=== PATIENT | male | born 1965 | race African-American/Black ===

== ENCOUNTER 2018-09-06 17:32 | Inpatient (IN) | payer OTHER ==
[2018-09-07 00:01] VITALS: BMI 22.9
--- NOTE | 2018-09-07 01:32 | HP ---
COWS - Scale Resting Pulse: 0= [place] 80 or Below Sweatin=Flushed/Facial Moisture Restless Observation: 0= Sits Still Pupil Size: 0= Normal to Room Light Bone or Joint Aches: 2= Severe Diffuse Aches Runny Nose/ Eye Tearin= Runny Nose/Eyes GI Upset > 30mins: 1= Stomach Cramp Tremor Observation: 4= Gross Tremor/Twitching Yawning Observation: 1= 1-2x During Session Anxiety or Irritability: 4=Extreme Anxiety Goose Flesh Skin: 0=Smooth Skin COWS Score: 16 CIWA Score - Admission Criteria OASAS Guidelines: Admission for Medically Managed Detox: Requires at least one of the followin. CIWA greater than 12 2. Seizures within the past 24 hours 3. Delirium tremens within the past 24 hours 4. Hallucinations within the past 24 hours 5. Acute intervention needed for co occurring medical disorder 6. Acute intervention needed for co occurring psychiatric disorder 7. Severe withdrawal that cannot be handled at a lower level of care (continued vomiting, continued diarrhea, abnormal vital signs) requiring intravenous medication and/or fluids 8. Admission ROS [facility] Chief Complaint: Heroin withdrawal symptoms Allergies/Adverse Reactions: Allergies Allergy/AdvReac Type Severity Reaction Status Date / Time Penicillins Allergy Verified 09/06/18 23:52 History of Present Illness: 52 years old male with a long history of heroin dependence is seeking admission to detox. Patient has been in previous detox and reports 15 months of sobriety. He has history of AIDS, Hep C, BPH, Seizures, asthma, COPD, positive PPD, depression and anxiety. He denies suicide attempt and suicidal ideation at this time Exam Limitations: No Limitations - Ebola screening Have you traveled outside of the country in the last 21 days: No (N) Have you had contact with anyone from an Ebola affected area: No Do you have a fever: No - Review of Systems Constitutional: Chills, Malaise, Night Sweats, Changes in sleep EENT: reports: Nose Congestion Respiratory: reports: No Symptoms reported Cardiac: reports: No Symptoms Reported GI: reports: Nausea, Poor Appetite, Poor Fluid Intake, Abdominal cramping : reports: No Symptoms Reported Musculoskeletal: reports: Back Pain Integumentary: reports: Dryness, Flushing Neuro: reports: Tremors Endocrine: reports: No Symptoms Reported Hematology: reports: No Symptoms Reported Psychiatric: reports: Orientated x3, Anxious Patient History - Patient Medical History Hx Anemia: No Hx Asthma: Yes ( A CHILD) Hx Chronic Obstructive Pulmonary Disease (COPD): Yes (noted on CXR 12/11/14) Hx Cancer: No Hx Cardiac Disorders: No Hx Congestive Heart Failure: No Hx Hypertension: No Hx Hypercholesterolemia: No Hx Pacemaker: No HX Cerebrovascular Accident: No Hx Seizures: Yes (SUBSTANCE ABUSE RELATED) Hx Dementia: No Hx Diabetes: No Hx Gastrointestinal Disorders: No Hx Liver Disease: No Hx Genitourinary Disorders: Yes (KIDNEY STONES) Hx Sexually Transmitted Disorders: No Hx Renal Disease (ESRD): No Hx Thyroid Disease: No Hx Human Immunodeficiency Virus (HIV): Yes Hx Hepatitis C: Yes (Not on medication) Hx Depression: Yes (Not on medication) - Patient Surgical History Past Surgical History: Yes Hx Neurologic Surgery: No Hx Cataract Extraction: No Hx Cardiac Surgery: No Hx Lung Surgery: No Hx Breast Surgery: No Hx Breast Biopsy: No Hx Abdominal Surgery: No Hx Appendectomy: No Hx Cholecystectomy: No Hx Genitourinary Surgery: Yes (KIDNEY STONES) Hx Section: No Hx Orthopedic Surgery: No Hx Hysterectomy: No Anesthesia Reaction: No - PPD History Previous Implant?: Yes (PPD POSITIVE ) PPD to be Administered?: No - Reproductive History Patient is a Female of Child Bearing Age (11 -55 yrs old): No (male) - Smoking Cessation Smoking history: Current every day smoker Have you smoked in the past 12 months: Yes Aproximately how many cigarettes per day: 6 Cigars Per Day: 0 Hx Chewing Tobacco Use: No Initiated information on smoking cessation: Yes 'Breaking Loose' booklet given: 09/07/18 - Substance & Tx. History Hx Alcohol Use: No Hx Substance Use: Yes Substance Use Type: Cocaine, Opiates Hx Substance Use Treatment: Yes - Substances abused Heroin Substance route: Inhalation Frequency: 3-6 times per week Amount used: 4 bundle Age of first use: 17 Date of last use: 09/06/18 Family Disease History - Family Disease History Family Disease History: Diabetes: Mother, Heart Disease: Grandparent (mat gm - htn) Admission Physical Exam BHS - Vital Signs Vital Signs: Vital Signs - 24 hr 09/06/18 09/07/18 23:49 00:43 Temperature 98.6 F 98.6 F Pulse Rate 78 78 Respiratory 16 16 Rate Blood Pressure 116/76 116/76 - Physical General Appearance: Yes: Moderate Distress, Tremorous, Irritable, Sweating, Anxious HEENTM: Yes: EOMI, Normal Voice, FAWN Respiratory: Yes: Lungs Clear, Normal Breath Sounds, No Respiratory Distress Neck: Yes: Supple Breast: Yes: Breast Exam Deferred Cardiology: Yes: Regular Rhythm, Regular Rate Abdominal: Yes: Normal Bowel Sounds, Soft Genitourinary: Yes: Within Normal Limits Back: Yes: Normal Inspection Musculoskeletal: Yes: Within Normal Limits Extremities: Yes: Normal Inspection Neurological: Yes: Within Normal Limits, Fully Oriented, Alert Integumentary: Yes: Warm Lymphatic: Yes: Within Normal Limits - Diagnostic (1) Asthma Current Visit: Yes Status: Chronic Qualifiers: Asthma severity: mild Asthma persistence: intermittent (2) Seizures Current Visit: Yes Status: Chronic (3) Hep C w/ coma, chronic Current Visit: Yes Status: Chronic (4) History of positive PPD Current Visit: Yes Status: Chronic Comment: h/o positive ppd, treated refer for cxr pa/lat f/u next visit (5) Acquired immune deficiency syndrome (AIDS) Current Visit: Yes Status: Chronic Comment: CD4 169, VL < 40 not detected influenza vaccine 11/27/17 -medication regimen started 11/29/2014: Truvada 1 tab po daily; Dolutegravir 50mg 1 tab po bid; Fuzeon inject 90 mg subQ bid; Study Drug (BMS Attachment Inhibitor) 1 tab po bid (provided by study at [facility], coordinator is Shannan Pena, ); pt to continue f/u [facility] -- next appt 08/05/18 (6) COPD (chronic obstructive pulmonary disease) Current Visit: Yes Status: Chronic Comment: cxr - no acute disease smoking cessation advised pt declines referral for pulmonology, PFTs, or chest ct (7) Cocaine dependence Current Visit: Yes Status: Chronic Qualifiers: Substance use status: uncomplicated Qualified Code(s): F14.20 - Cocaine dependence, uncomplicated (8) BPH (benign prostatic hyperplasia) Current Visit: Yes Status: Acute (9) Opioid dependence with withdrawal Current Visit: Yes Status: Acute (10) Nicotine dependence Current Visit: Yes Status: Chronic Qualifiers: Nicotine product type: cigarettes Substance use status: uncomplicated Qualified Code(s): F17.210 - Nicotine dependence, cigarettes, uncomplicated Cleared for Admission S - Detox or Rehab [facility] Level of Care: Medically Managed Detox Regimen/Protocol: Methadone Claeared for Rehab Admission: No Breathalyzer - Breathalyzer Breathalyzer: 0 Urine Drug Screen - Test Device Lot number: [id number] Expiration date: 06/20/20 - Control Is test valid?: Yes - Results Drug screen NEGATIVE: No Urine drug screen results: LIBERTY-Cocaine, MOP-Opiates Inpatient Rehab Admission - Rehab Decision to Admit Inpatient rehab admission?: No
[2018-09-07] MEDS ORDERED: IBUPROFEN 400 MG TABLET (FP) PO PRN (01:53)
[2018-09-07] MEDS ORDERED: METHADONE HCL 10 MG TABLET (FOR DETOX USE ONLY) PO ONE (01:53)
[2018-09-07] MEDS ORDERED: MAG HYDROX/AL HYDROX/SIMETH 30 ML UNIT-DOSE CUP PO PRN (01:53)
[2018-09-07] MEDS ORDERED: P-EPHED 60MG/TRIPROLIDI 2.5MG TABLET PO PRN (01:53)
[2018-09-07] MEDS ORDERED: guaiFENesin 200 MG/10 ML 10 ML UNIT-DOSE CUPS PO PRN (01:53)
[2018-09-07] MEDS ORDERED: NICOTINE POLACRILEX 2 MG GUM BUC PRN (01:53)
[2018-09-07] MEDS ORDERED: ACETAMINOPHEN 325 MG TABLET (FP) PO PRN (01:53)
[2018-09-07] MEDS ORDERED: MAGNESIUM CITRATE 300 ML BOTTLE PO PRN (01:53)
[2018-09-07] MEDS ORDERED: cloNIDine HCL 0.1 MG TABLET PO PRN (01:53)
[2018-09-07] MEDS ORDERED: MENTHOL/PHENOL 1 EACH UD MM PRN (01:53)
[2018-09-07] MEDS ORDERED: MAGNESIUM HYDROX 2400MG/30ML ORAL SUSPENSION 30 ML CUP PO PRN (01:53)
[2018-09-07] MEDS ORDERED: LOPERAMIDE HCL 2 MG CAPSULE PO PRN (01:53)
[2018-09-07] MEDS ORDERED: ALBUTEROL SO4 8 GM HFA INHALER IH PRN (01:54)
--- NOTE | 2018-09-07 08:52 | PN ---
BHS COWS - Scale Resting Pulse: 0= [place] 80 or Below Sweatin= Chills/Flushing Restless Observation: 1= Difficult to Sit Still Pupil Size: 1= Pupils >than Normal Bone or Joint Aches: 2= Severe Diffuse Aches Runny Nose/ Eye Tearin= Nasal Congestion GI Upset > 30mins: 2= Nausea/Diarrhea Tremor Observation of Outstretched Hands: 2= Slight Tremor Visible Yawning Observation: 1= 1-2x During Session Anxiety or Irritability: 2=Irritable/Anxious Goose Flesh Skin: 0=Smooth Skin COWS Score: 13 BHS Progress Note (SOAP) Subjective: alert,irritable,anxious,interrupted sleep,pain in the body and back Objective: 09/07/18 08:51 Vital Signs Temperature 98.6 F 09/07/18 07:11 Pulse Rate 80 09/07/18 07:11 Respiratory Rate 18 09/07/18 07:11 Blood Pressure 128/72 09/07/18 07:11 O2 Sat by Pulse Oximetry (%) 09/07/18 08:52 labs pending Assessment: 09/07/18 08:51 withdrawal symptom Plan: continue detox
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
[2018-09-07] MEDS: NICOTINE 14 MG/24 HOURS TOPICAL PATCH TD SCH (10:59)
[2018-09-07] MEDS: PRENATAL VITAMINS W/ FOLIC ACID TABLET (FP) PO SCH (10:59)
[2018-09-07] MEDS: SULFAMETHOXAZOLE/TRIMETHOPRIM 800MG/160MG D.S. TABLET PO SCH (10:59)
[2018-09-07] MEDS: CITALOPRAM HYDROBROMIDE 20 MG TABLET (FP) PO SCH (11:00)
[2018-09-07] MEDS: BENZTROPINE MESYLATE 1 MG TABLET (FP) PO SCH ×2 (11:00→23:03)
[2018-09-07] MEDS: ARIPiprazole 2 MG TABLET PO SCH (12:12)
[2018-09-07 12:15] LABS: HEMATOCRIT 37.9 % (35.4-49); HEMOGLOBIN 13.1 GM/dL (11.7-16.9); MCH 28.2 pg (25.7-33.7); MCHC 34.5 g/dl (32.0-35.9); MEAN CELL VOLUME 81.9 fl (80-96); MEAN PLT VOLUME 8.2 fl (7.5-11.1); RBC 4.63 M/mm3 (4.00-5.60); RDW 16.4 % (11.9-15.9); WHITE BLOOD COUNT 6.2 K/mm3 (4.0-10.0)
[2018-09-07 12:28] LABS: EPI CELLS 6.9 /HPF (0-5/HPF); HYALINE CASTS 19 /lpf (0-8); PH,URINE 6.5 (5.0-8.0); URINE APPEARANCE CLEAR; URINE BACTERIA 2.9 /hpf (NEGATIVE); URINE BILIRUBIN 1+ (NEGATIVE); URINE COLOR DK YELLOW; URINE GLUCOSE (UA) NEGATIVE (NEGATIVE); URINE KETONE NEGATIVE (NEGATIVE); URINE LEUK ESTERASE 3+ (NEGATIVE); URINE NITRITE NEGATIVE (NEGATIVE); URINE PROTEIN NEGATIVE (NEGATIVE); URINE RBC 9 /hpf (0-4); URINE WBC 71 /hpf (0-5)
[2018-09-07 12:34] LABS: ALBUMIN 3.3 g/dl (3.4-5.0); BILIRUBIN,TOTAL 0.3 mg/dL (0.2-1); BLOOD UREA NITROGEN 10.3 mg/dL (7-18); CALCIUM 8.2 mg/dL (8.5-10.1); CREATININE 0.9 mg/dL (0.55-1.3); POTASSIUM 4.4 mmol/L (3.5-5.1); TOT PROT 6.6 g/dl (6.4-8.2)
[2018-09-07 13:18] LABS: PLATELET COUNT 317 K/MM3 (134-434)
[2018-09-07] MEDS ORDERED: MELATONIN 5 MG TABLETS PO PRN (22:00)
[2018-09-07] MEDS: THIAMINE HCL 100 MG TABLET (FP) PO SCH (23:03)
[2018-09-07] MEDS: OLANZapine 10 MG TABLET PO SCH (23:03)
--- NOTE | 2018-09-08 09:53 | PN ---
BHS COWS - Scale Resting Pulse: 0= [place] 80 or Below Sweatin= Chills/Flushing Restless Observation: 1= Difficult to Sit Still Pupil Size: 0= Normal to Room Light Bone or Joint Aches: 1= Mild Discomfort Runny Nose/ Eye Tearin= Runny Nose/Eyes GI Upset > 30mins: 0= None Tremor Observation of Outstretched Hands: 1= Tremor [place], Not Seen Yawning Observation: 0= None Anxiety or Irritability: 2=Irritable/Anxious Goose Flesh Skin: 0=Smooth Skin COWS Score: 8 BHS Progress Note (SOAP) Subjective: Patient on opioid detox c/o of interrupted sleep, body aches and anxious. MAT options discussed,patietn reports hx OTP, plans to return to out patient day program at [facility] upon completing detox Objective: 09/08/18 09:48 Vital Signs Temperature 96.6 F L 09/08/18 07:13 Pulse Rate 63 09/08/18 07:13 Respiratory Rate 18 09/08/18 07:13 Blood Pressure 112/58 L 09/08/18 07:13 O2 Sat by Pulse Oximetry (%) Laboratory Last Values WBC 6.2 K/mm3 (4.0-10.0) 09/07/18 07:00 RBC 4.63 M/mm3 (4.00-5.60) 09/07/18 07:00 Hgb 13.1 GM/dL (11.7-16.9) 09/07/18 07:00 Hct 37.9 % (35.4-49) 09/07/18 07:00 MCV 81.9 fl (80-96) 09/07/18 07:00 MCH 28.2 pg (25.7-33.7) 09/07/18 07:00 MCHC 34.5 g/dl (32.0-35.9) 09/07/18 07:00 RDW 16.4 % (11.9-15.9) H 09/07/18 07:00 Plt Count 317 K/MM3 (134-434) 09/07/18 07:00 MPV 8.2 fl (7.5-11.1) 09/07/18 07:00 Sodium 138 mmol/L (136-145) 09/07/18 07:00 Potassium 4.4 mmol/L (3.5-5.1) 09/07/18 07:00 Chloride 107 mmol/L (98-107) 09/07/18 07:00 Carbon Dioxide 29 mmol/L (21-32) 09/07/18 07:00 Anion Gap 3 MMOL/L (8-16) L 09/07/18 07:00 BUN 10.3 mg/dL (7-18) 09/07/18 07:00 Creatinine 0.9 mg/dL (0.55-1.3) 09/07/18 07:00 Est GFR (CKD-EPI)AfAm 112.62 09/07/18 07:00 Est GFR (CKD-EPI)NonAf 97.17 09/07/18 07:00 Random Glucose 80 mg/dL (74-106) 09/07/18 07:00 Calcium 8.2 mg/dL (8.5-10.1) L 09/07/18 07:00 Total Bilirubin 0.3 mg/dL (0.2-1) 09/07/18 07:00 AST 32 U/L (15-37) 09/07/18 07:00 ALT 31 U/L (13-61) 09/07/18 07:00 Alkaline Phosphatase 103 U/L (45-117) 09/07/18 07:00 Total Protein 6.6 g/dl (6.4-8.2) 09/07/18 07:00 Albumin 3.3 g/dl (3.4-5.0) L 09/07/18 07:00 Urine Color Dk yellow 09/07/18 09:45 Urine Appearance Clear 09/07/18 09:45 Urine pH 6.5 (5.0-8.0) 09/07/18 09:45 Ur Specific [place] 1.020 (1.010-1.035) 09/07/18 09:45 Urine Protein Negative (NEGATIVE) 09/07/18 09:45 Urine Glucose (UA) Negative (NEGATIVE) 09/07/18 09:45 Urine Ketones Negative (NEGATIVE) 09/07/18 09:45 Urine Blood Negative (NEGATIVE) 09/07/18 09:45 Urine Nitrite Negative (NEGATIVE) 09/07/18 09:45 Urine Bilirubin 1+ (NEGATIVE) H 09/07/18 09:45 Urine Urobilinogen 1.0 mg/dL (0.2-1.0) 09/07/18 09:45 Ur Leukocyte Esterase 3+ (NEGATIVE) H 09/07/18 09:45 Urine WBC (Auto) 71 /hpf (0-5) 09/07/18 09:45 Urine RBC (Auto) 9 /hpf (0-4) 09/07/18 09:45 Urine Casts (Auto) 19 /lpf (0-8) 09/07/18 09:45 U Epithel Cells (Auto) 6.9 /HPF (0-5/HPF) 09/07/18 09:45 U Sm Round Cell (Auto) None seen 09/07/18 09:45 Urine Bacteria (Auto) 2.9 /hpf (NEGATIVE) 09/07/18 09:45 RPR Titer Nonreactive (NONREACTIVE) 09/07/18 07:00 labs reviewed, repeat u/a Assessment: 09/08/18 09:53 patient Aox3, mild anxious no acute distress + cheilitis full ROM ambulating in the unit Plan: Increase PO fluids repeat u/a continue detox continue to monitor
[2018-09-08] MEDS ORDERED: METHADONE HCL 5 MG TABLET (FOR DETOX USE ONLY) PO ONE (10:00)
[2018-09-08] MEDS: BENZTROPINE MESYLATE 1 MG TABLET (FP) PO SCH ×2 (10:06→22:10)
[2018-09-08] MEDS: PRENATAL VITAMINS W/ FOLIC ACID TABLET (FP) PO SCH (10:06)
[2018-09-08] MEDS: TAMSULOSIN HCL 0.4 MG CAP PO SCH (10:07)
[2018-09-08] MEDS: CITALOPRAM HYDROBROMIDE 20 MG TABLET (FP) PO SCH (10:07)
[2018-09-08] MEDS: SULFAMETHOXAZOLE/TRIMETHOPRIM 800MG/160MG D.S. TABLET PO SCH (10:07)
[2018-09-08] MEDS: ARIPiprazole 2 MG TABLET PO SCH (10:09)
[2018-09-08] MEDS: NICOTINE 14 MG/24 HOURS TOPICAL PATCH TD SCH (10:10)
--- NOTE | 2018-09-08 10:33 | EKG ---
Test Reason : Blood Pressure : / mmHG Vent. Rate : 074 BPM Atrial Rate : 074 BPM P-R Int : 180 ms QRS Dur : 076 ms QT Int : 374 ms P-R-T Axes : 073 040 018 degrees QTc Int : 415 ms NORMAL SINUS RHYTHM NORMAL ECG NO PREVIOUS ECGS AVAILABLE Confirmed by SHELTON AGUILAR, GERMAN ([id number]) on 09/08/2018 10:33:39 AM Referred By: Brown Faria Confirmed By:GERMAN PEOPLES MD
[2018-09-08] MEDS: OLANZapine 10 MG TABLET PO SCH (22:10)
[2018-09-08] MEDS: THIAMINE HCL 100 MG TABLET (FP) PO SCH (22:10)
--- NOTE | 2018-09-09 08:43 | PN ---
BHS COWS - Scale Resting Pulse: 0= [place] 80 or Below Sweatin= Chills/Flushing Restless Observation: 0= Sits Still Pupil Size: 0= Normal to Room Light Bone or Joint Aches: 1= Mild Discomfort Runny Nose/ Eye Tearin= None GI Upset > 30mins: 0= None Tremor Observation of Outstretched Hands: 0= None Yawning Observation: 1= 1-2x During Session Anxiety or Irritability: 1=Feels Anxious/Irritable Goose Flesh Skin: 0=Smooth Skin COWS Score: 4 BHS Progress Note (SOAP) Subjective: c/o body aches, interrupted sleep, chills Objective: 09/09/18 08:41 Vital Signs Temperature 98.2 F 09/09/18 07:40 Pulse Rate 71 09/09/18 07:40 Respiratory Rate 18 09/09/18 07:40 Blood Pressure 102/63 09/09/18 07:40 O2 Sat by Pulse Oximetry (%) Laboratory Last Values WBC 6.2 K/mm3 (4.0-10.0) 09/07/18 07:00 RBC 4.63 M/mm3 (4.00-5.60) 09/07/18 07:00 Hgb 13.1 GM/dL (11.7-16.9) 09/07/18 07:00 Hct 37.9 % (35.4-49) 09/07/18 07:00 MCV 81.9 fl (80-96) 09/07/18 07:00 MCH 28.2 pg (25.7-33.7) 09/07/18 07:00 MCHC 34.5 g/dl (32.0-35.9) 09/07/18 07:00 RDW 16.4 % (11.9-15.9) H 09/07/18 07:00 Plt Count 317 K/MM3 (134-434) 09/07/18 07:00 MPV 8.2 fl (7.5-11.1) 09/07/18 07:00 Sodium 138 mmol/L (136-145) 09/07/18 07:00 Potassium 4.4 mmol/L (3.5-5.1) 09/07/18 07:00 Chloride 107 mmol/L (98-107) 09/07/18 07:00 Carbon Dioxide 29 mmol/L (21-32) 09/07/18 07:00 Anion Gap 3 MMOL/L (8-16) L 09/07/18 07:00 BUN 10.3 mg/dL (7-18) 09/07/18 07:00 Creatinine 0.9 mg/dL (0.55-1.3) 09/07/18 07:00 Est GFR (CKD-EPI)AfAm 112.62 09/07/18 07:00 Est GFR (CKD-EPI)NonAf 97.17 09/07/18 07:00 Random Glucose 80 mg/dL (74-106) 09/07/18 07:00 Calcium 8.2 mg/dL (8.5-10.1) L 09/07/18 07:00 Total Bilirubin 0.3 mg/dL (0.2-1) 09/07/18 07:00 AST 32 U/L (15-37) 09/07/18 07:00 ALT 31 U/L (13-61) 09/07/18 07:00 Alkaline Phosphatase 103 U/L (45-117) 09/07/18 07:00 Total Protein 6.6 g/dl (6.4-8.2) 09/07/18 07:00 Albumin 3.3 g/dl (3.4-5.0) L 09/07/18 07:00 Urine Color Dk yellow 09/07/18 09:45 Urine Appearance Clear 09/07/18 09:45 Urine pH 6.5 (5.0-8.0) 09/07/18 09:45 Ur Specific [place] 1.020 (1.010-1.035) 09/07/18 09:45 Urine Protein Negative (NEGATIVE) 09/07/18 09:45 Urine Glucose (UA) Negative (NEGATIVE) 09/07/18 09:45 Urine Ketones Negative (NEGATIVE) 09/07/18 09:45 Urine Blood Negative (NEGATIVE) 09/07/18 09:45 Urine Nitrite Negative (NEGATIVE) 09/07/18 09:45 Urine Bilirubin 1+ (NEGATIVE) H 09/07/18 09:45 Urine Urobilinogen 1.0 mg/dL (0.2-1.0) 09/07/18 09:45 Ur Leukocyte Esterase 3+ (NEGATIVE) H 09/07/18 09:45 Urine WBC (Auto) 71 /hpf (0-5) 09/07/18 09:45 Urine RBC (Auto) 9 /hpf (0-4) 09/07/18 09:45 Urine Casts (Auto) 19 /lpf (0-8) 09/07/18 09:45 U Epithel Cells (Auto) 6.9 /HPF (0-5/HPF) 09/07/18 09:45 U Sm Round Cell (Auto) None seen 09/07/18 09:45 Urine Bacteria (Auto) 2.9 /hpf (NEGATIVE) 09/07/18 09:45 RPR Titer Nonreactive (NONREACTIVE) 09/07/18 07:00 Assessment: 09/09/18 13:32 withdrawal sx Plan: continue detox Follow up at the [facility] as scheduled 09/30/18 D/c in AM Continue to monitor
[2018-09-09] MEDS: BENZTROPINE MESYLATE 1 MG TABLET (FP) PO SCH ×2 (09:22→22:04)
[2018-09-09] MEDS: TAMSULOSIN HCL 0.4 MG CAP PO SCH (09:22)
[2018-09-09] MEDS: CITALOPRAM HYDROBROMIDE 20 MG TABLET (FP) PO SCH (09:22)
[2018-09-09] MEDS: SULFAMETHOXAZOLE/TRIMETHOPRIM 800MG/160MG D.S. TABLET PO SCH (09:23)
[2018-09-09] MEDS: ARIPiprazole 2 MG TABLET PO SCH (09:24)
[2018-09-09] MEDS: PRENATAL VITAMINS W/ FOLIC ACID TABLET (FP) PO SCH (09:27)
[2018-09-09] MEDS: NICOTINE 14 MG/24 HOURS TOPICAL PATCH TD SCH (09:28)
[2018-09-09] MEDS ORDERED: METHADONE HCL 10 MG TABLET (FOR DETOX USE ONLY) PO ONE (10:00)
[2018-09-09] MEDS: THIAMINE HCL 100 MG TABLET (FP) PO SCH (22:04)
[2018-09-09] MEDS: OLANZapine 10 MG TABLET PO SCH (22:04)
[2018-09-10] MEDS ORDERED: METHADONE HCL 5 MG TABLET (FOR DETOX USE ONLY) PO ONE (06:00)
--- NOTE | 2018-09-10 08:31 | DS ---
[facility] Detox Discharge Summary Admission Date: 09/07/18 Discharge Date: 09/10/18 - History Present History: Cocaine Dependence, Opioid Dependence - Physical Exam Results Vital Signs: Vital Signs Temperature 96.6 F L 09/10/18 06:00 Pulse Rate 63 09/10/18 06:00 Respiratory Rate 18 09/10/18 06:00 Blood Pressure 117/54 L 09/10/18 06:00 O2 Sat by Pulse Oximetry (%) - Treatment Hospital Course: Detox Protocol Followed, Detoxed Safely, Responded well, Discharged Condition Good - Medication Discharge Medications: Ambulatory Orders Benztropine Mesylate [Cogentin -] 1 mg PO BID #0 08/25/11 Citalopram Hydrobromide [Celexa -] 40 mg PO DAILY #0 08/25/11 Fluphenazine HCl 2 tab PO BID #0 08/25/11 Olanzapine [Zyprexa] 20 mg PO HS #0 08/25/11 Hydrocortisone 1% Cream [Hytone 1% Cream -] 1 applic TP BID #1 tube 07/30/18 Albuterol Sulfate Inhaler - [Ventolin HFA Inhaler -] 2 inh PO Q6H PRN #1 inh Cetirizine HCl [Zyrtec -] 10 mg PO DAILY PRN #30 tablet 08/18/18 Dolutegravir Sodium [Tivicay] 50 mg PO BID #60 tablet 08/18/18 Emtricitabine/Tenofovir [Truvada -] 1 tab PO DAILY #30 tablet 08/18/18 Enfuvirtide [Fuzeon -] 90 mg SQ BID #60 vial 08/18/18 Fluticasone Prop 0.05% Nasal [Flonase -] 1 - 2 spray NS DAILY #1 spray.pump Multivitamins [Multivit ([facility] Formulary)] 1 tab PO DAILY #30 tab 08/18/18 Sodium Chloride [Saline Nasal [place]] 1 - 2 sprays NS PRN #1 spray 08/18/18 Sulfamethoxazole/Trimethoprim [Bactrim DS -] 1 tab PO DAILY #30 tablet 08/18/18 Tamsulosin HCl [Flomax -] 0.4 mg PO DAILY #30 cap.er.24h 08/18/18 - Diagnosis (1) Opioid dependence with withdrawal Current Visit: Yes Status: Chronic (2) Acquired immune deficiency syndrome (AIDS) Current Visit: Yes Status: Chronic (3) Asthma Current Visit: Yes Status: Chronic Qualifiers: Asthma severity: mild Asthma persistence: intermittent (4) BPH (benign prostatic hyperplasia) Current Visit: Yes Status: Chronic (5) COPD (chronic obstructive pulmonary disease) Current Visit: No Status: Chronic (6) Cocaine dependence Current Visit: Yes Status: Chronic Qualifiers: Substance use status: uncomplicated Qualified Code(s): F14.20 - Cocaine dependence, uncomplicated - AMA Did Patient Leave Against Medical Advice: No
[2018-09-10 09:07] VITALS: BP 147/70; PULSE 74; TEMP 97.2
== END 2018-09-10 09:13 | disposition home or self-care (01) | DRG 897 ==
LOC: YASAS 17:32 → Y6N 09-07 01:22
PROVIDERS: ADMIT Surgery; ATTEND Surgery
PROC: HZ2ZZZZ Detoxification Services for Substance Abuse Treatment (ICD-10-PCS; principal; 2018-09-07)
DX: F11.23 Opioid dependence with withdrawal (principal); F14.20 Cocaine dependence, uncomplicated; B20 Human immunodeficiency virus [HIV] disease; F19.282 Other psychoactive substance dependence with psychoactive substance-induced sleep disorder; F17.210 Nicotine dependence, cigarettes, uncomplicated; F19.24 Other psychoactive substance dependence with psychoactive substance-induced mood disorder; J45.20 Mild intermittent asthma, uncomplicated; J44.9 Chronic obstructive pulmonary disease, unspecified; N40.0 Benign prostatic hyperplasia without lower urinary tract symptoms; G40.909 Epilepsy, unspecified, not intractable, without status epilepticus; B18.2 Chronic viral hepatitis C; K13.0 Diseases of lips; R76.11 Nonspecific reaction to tuberculin skin test without active tuberculosis
CPT/HCPCS: 36415; 71046-TC-FY; 80053; 81003; 85027; 86593; 93005; 93010

== ENCOUNTER → 2018-10-19 | Outpatient (CLI) | payer OTHER | LOC: YHH 10:16 ==

== ENCOUNTER 2020-10-16 04:32 | Day surgery (SDC) | payer OTHER ==
[2020-10-15 12:34] VITALS: BMI 20.9
[2020-10-16 09:25] VITALS: TEMP 97.1
[2020-10-16 09:40] VITALS: BP 117/67; PULSE 66
== END 2020-10-16 09:49 | disposition home or self-care (01) ==
LOC: JASU-ENDO 04:32
PROVIDERS: ATTEND Internal Medicine Gastroenterology
PROC: 0DJD8ZZ Inspection of Lower Intestinal Tract, Via Natural or Artificial Opening Endoscopic (ICD-10-PCS; principal; 2020-10-16 08:15)
DX: Z12.11 Encounter for screening for malignant neoplasm of colon (principal); Z86.010 Personal history of colon polyps; K64.8 Other hemorrhoids; R19.5 Other fecal abnormalities

== ENCOUNTER 2023-07-09 09:16 | Inpatient (IN) | payer OTHER ==
[2023-07-09 09:32] VITALS: BMI 22.9
[2023-07-09] MEDS ORDERED: ACETAMINOPHEN 325 MG TABLET (FP) ONE (10:22)
[2023-07-09] MEDS: ACETAMINOPHEN 325 MG TABLET (FP) PO ONE (10:45)
[2023-07-09 10:53] LABS: BASO % 0.7 % (0-2.0); EOS % 3.2 % (0-4.5); HEMATOCRIT 36.8 % (35.4-49); HEMOGLOBIN 12.9 GM/dL (11.7-16.9); LYMPH % 23.2 % (8-40); MCH 28.4 pg (25.7-33.7); MCHC 35.1 g/dl (32.0-35.9); MEAN PLT VOLUME 7.9 fl (7.5-11.1); MONO % 13.5 % (3.8-10.2); NEUT % 59.4 % (42.8-82.8); PLATELET COUNT 247 10^3/uL (134-434); RBC 4.54 M/mm3 (4.00-5.60); RDW 16.5 % (11.9-15.9); WHITE BLOOD COUNT 2.9 K/mm3 (4.0-10.0)
[2023-07-09 11:07] LABS: POTASSIUM 3.2 mmol/L (3.5-5.1)
[2023-07-09 11:09] LABS: ALBUMIN 2.9 g/dl (3.4-5.0); CALCIUM 8.1 mg/dL (8.5-10.1); MAGNESIUM 2.1 mg/dL (1.8-2.4)
[2023-07-09 11:10] LABS: BLOOD UREA NITROGEN 19.9 mg/dL (7-18)
[2023-07-09] MEDS ORDERED: VANCOMYCIN 1 GRAM (PRE-DOCKED) 1,000 MG/250 ML BAG IVPB ONE (11:10)
[2023-07-09] MEDS ORDERED: DIPHTH,PERTUSS(ACELL),TET 0.5 ML DISP.SYRIN IM ONE (11:11)
[2023-07-09 11:13] LABS: CREATININE 0.7 mg/dL (0.55-1.3)
[2023-07-09 11:14] LABS: BILIRUBIN,TOTAL 0.3 mg/dL (0.2-1); TOT PROT 6.9 g/dl (6.4-8.2)
[2023-07-09] MEDS ORDERED: CEFEPIME 2 GM/100 ML BAG IVPB ONE ×2 (11:16→11:19)
[2023-07-09] MEDS: CEFEPIME HCL 2 GM VIAL (RESTRICTED TO ID) IVPB ONE (11:25)
[2023-07-09 11:32] LABS: ERYTHROCYTE SEDIMENTATION RATE 56 mm/hr (0-20)
[2023-07-09] MEDS: VANCOMYCIN 1,000 MG in DEXTROSE 5%-WATER - 250 ML IVPB ONE (12:45)
[2023-07-09] MEDS: DIPHTH,PERTUSS(ACELL),TET 0.5 ML DISP.SYRIN IM ONE (13:18)
[2023-07-09] MEDS ORDERED: VANCOMYCIN 1,000 MG in DEXTROSE 5%-WATER - 250 ML IVPB SCH (13:45)
[2023-07-09] MEDS: CEFEPIME 2 GM in DEXTROSE 5%-WATER 100 ML IVPB SCH (22:25)
[2023-07-09] MEDS: OLANZapine 10 MG TABLET PO SCH (22:25)
[2023-07-10] MEDS: VANCOMYCIN/WATER FOR INJ (PEG) 1,000 MG/200 ML BAG IVPB ONE (01:16)
[2023-07-10] MEDS ORDERED: ACETAMINOPHEN 325 MG TABLET (FP) PO PRN (08:28)
[2023-07-10] MEDS ORDERED: KETOROLAC TROMETHAMINE 15 MG/ML VIAL IVPUSH PRN (08:29)
[2023-07-10] MEDS: HALOPERIDOL LACTATE 5 MG/ML IM ONE (09:55)
[2023-07-10] MEDS ORDERED: ENOXAPARIN NA (PORCINE) 40 MG/0.4 ML DISP.SYRIN SQ SCH (10:00)
[2023-07-10] MEDS: CITALOPRAM HYDROBROMIDE 20 MG TABLET PO SCH (10:50)
[2023-07-10] MEDS: TAMSULOSIN HCL 0.4 MG CAP PO SCH (10:50)
[2023-07-10] MEDS: ARIPiprazole 10 MG TABLET PO SCH (10:56)
[2023-07-10] MEDS: SULFAMETHOXAZOLE/TRIMETHOPRIM 800MG/160MG D.S. TABLET PO SCH (11:29)
[2023-07-10] MEDS: VITAMIN B COMPLEX W/C COMBO TABLET (FP) PO SCH (12:14)
[2023-07-10] MEDS: CHOLECALCIFEROL (VIT D3) 1,000 UNIT (25 MCG) TABLET PO SCH (12:14)
[2023-07-10] MEDS: MAGNESIUM OXIDE 400 MG TABLET (FP) PO SCH (12:14)
[2023-07-10] MEDS: VANCOMYCIN/WATER FOR INJ (PEG) 1,000 MG/200 ML BAG IVPB SCH (14:11)
[2023-07-10] MEDS: LORazepam 2 MG/ML SDV VIAL IM ONE (20:08)
[2023-07-10] MEDS: CEFEPIME 2 GM in DEXTROSE 5%-WATER 100 ML IVPB SCH (22:21)
[2023-07-11 09:46] LABS: BASO % 0.8 % (0-2.0); EOS % 6.9 % (0-4.5); HEMATOCRIT 37.3 % (35.4-49); HEMOGLOBIN 12.6 GM/dL (11.7-16.9); MCH 27.6 pg (25.7-33.7); MCHC 33.7 g/dl (32.0-35.9); MEAN CELL VOLUME 81.9 fl (80-96); MEAN PLT VOLUME 8.2 fl (7.5-11.1); MONO % 10.8 % (3.8-10.2); NEUT % 51.5 % (42.8-82.8); PLATELET COUNT 220 10^3/uL (134-434); RBC 4.55 M/mm3 (4.00-5.60); RDW 16.3 % (11.9-15.9); WHITE BLOOD COUNT 3.1 K/mm3 (4.0-10.0)
[2023-07-11] MEDS: NICOTINE 14 MG/24 HOURS TOPICAL PATCH TD SCH (12:51)
[2023-07-11] MEDS: CEFTRIAXONE 2 GM in DEXTROSE 5%-WATER 100 ML IVPB SCH (14:44)
[2023-07-13] MEDS: CEFEPIME HCL 2 GM VIAL (RESTRICTED TO ID) IVPB SCH (17:36)
[2023-07-13] MEDS: LORATADINE 10 MG TABLET PO PRN (21:18)
[2023-07-14 06:36] VITALS: RESP 18
[2023-07-14 08:37] LABS: HEMATOCRIT 37.5 % (35.4-49); HEMOGLOBIN 13.1 GM/dL (11.7-16.9); MCH 28.3 pg (25.7-33.7); MCHC 34.9 g/dl (32.0-35.9); MEAN PLT VOLUME 8.4 fl (7.5-11.1); PLATELET COUNT 226 10^3/uL (134-434); RBC 4.63 M/mm3 (4.00-5.60); RDW 16.8 % (11.9-15.9)
[2023-07-14 08:40] LABS: POTASSIUM 4.6 mmol/L (3.5-5.1)
[2023-07-14 08:44] LABS: ALBUMIN 3.1 g/dl (3.4-5.0); BLOOD UREA NITROGEN 15.7 mg/dL (7-18); CALCIUM 8.7 mg/dL (8.5-10.1)
[2023-07-14 08:47] LABS: CREATININE 0.7 mg/dL (0.55-1.3)
[2023-07-14 08:49] LABS: BILIRUBIN,TOTAL 0.2 mg/dL (0.2-1); TOT PROT 7.2 g/dl (6.4-8.2)
[2023-07-14 14:46] VITALS: BP 114/62; PULSE 76; TEMP 98
[2023-07-14] MEDS: MINERAL OIL/PET HY-PHL TOPICAL OINTMENT 454 GM JAR TP SCH (16:06)
== END 2023-07-14 17:55 | disposition home or self-care (01) | DRG 603 ==
LOC: JER 09:16 → JERBED 12:44 → UNDOADMOB 12:44 → OBSVTOIN 13:35 → INTOOBSV 13:35 → JERBED 14:06 → J5S 14:06 → JERBED 07-10 11:08 → J5S 07-10 11:08 → OBSVTOIN 07-10 11:49
PROVIDERS: ADMIT Internal Medicine
DX: L03.114 Cellulitis of left upper limb (principal); B20 Human immunodeficiency virus [HIV] disease; E44.0 Moderate protein-calorie malnutrition; L08.9 Local infection of the skin and subcutaneous tissue, unspecified; F20.9 Schizophrenia, unspecified; S61.012A Laceration without foreign body of left thumb without damage to nail, initial encounter; X58.XXXA Exposure to other specified factors, initial encounter; Y93.9 Activity, unspecified; Y92.099 Unspecified place in other non-institutional residence as the place of occurrence of the external cause; Y99.9 Unspecified external cause status; Z88.0 Allergy status to penicillin; Z68.23 Body mass index [BMI] 23.0-23.9, adult
CPT/HCPCS: 36415; 73110-TC-LT-FY; 73130-TC-LT-FY; 73201-TC-RT; 80053; 83735; 85025; 85027; 85651; 86140; 86359; 86360; 87040; 87070; 87077; 87205; 90715; 99285-25; G0378